=== PATIENT | female | born 1970 | race Caucasian/White ===

== ENCOUNTER 2019-06-16 21:49 | Emergency (ER) | payer SELFPAY ==
[2019-06-16 22:00] VITALS: BP 122/85; PULSE 88; TEMP 97.7; BMI 24.5
--- NOTE | 2019-06-16 22:05 | PDOC ---
History of Present Illness - General Chief Complaint: Pain, Acute Stated Complaint: HEADACHE,DIZZY Time Seen by Provider: 06/16/19 21:59 - History of Present Illness Initial Comments: This 49-year-old woman with no significant past medical history presents with a 1 day history of frontal headache. Patient states that she had a mild headache upon awakening today and reported to work. During the morning, she had more significant pain (dull, steady headache on both sides of her forehead). Patient states that she rarely gets headaches although her mother has a history of migraines. No fevers/chills/nasal congestion/stiff neck or rhinorrhea reported. Patient states that she had "the flu" a few weeks ago during which she had a fever, body aches and weakness. Pain continued through out the day and she took 800 mg of ibuprofen when she returned home late in the afternoon. She noted lightheadedness, mild nausea and increased pain when looking at light late this afternoon and early this evening. No daily medications No known allergies Non-smoker; denies daily alcohol or recreational drug use Past History - Past Medical History Allergies/Adverse Reactions: Allergies Allergy/AdvReac Type Severity Reaction Status Date / Time No Known Allergies Allergy Verified 06/16/19 21:53 Home Medications: Ambulatory Orders Naproxen [Naprosyn -] 500 mg PO BID PRN #14 tablet 06/16/19 COPD: No Other medical history: DENIES - Psycho Social/Smoking Cessation Hx Smoking History: Never smoked Have you smoked in the past 12 months: No Information on smoking cessation initiated: No Hx Alcohol Use: No Drug/Substance Use Hx: No Review of Systems - Review of Systems Able to Perform ROS?: Yes Comments:: 12 point review of systems is negative except for what is noted in the history of present illness *Physical Exam - Vital Signs Last Vital Signs Temp Pulse Resp BP Pulse Ox 97.7 F 88 16 122/85 98 06/16/19 21:56 06/16/19 21:56 06/16/19 21:56 06/16/19 21:56 06/16/19 21:56 - Physical Exam GENERAL: Adult female, alert and oriented x3, mild distress secondary to frontal headache HEAD: Normal with no signs of trauma. EYES: PERRLA, EOMI, sclera anicteric, conjunctiva clear. ENT: Ears normal, nares patent, oropharynx clear without exudates. Moist mucous membranes. NECK: Normal range of motion, supple without lymphadenopathy, JVD, or masses. LUNGS: Breath sounds equal, clear to auscultation bilaterally. No wheezes, and no crackles. HEART:Regular rate and rhythm, normal S1 and S2 without murmur, rub or gallop. ABDOMEN:.normal bowel sounds No guarding,tenderness or rebound.No masses No distention. EXTREMITIES: Normal range of motion, no edema. No clubbing or cyanosis. No erythema, or tenderness. NEUROLOGICAL: Cranial nerves II through XII grossly intact. Normal speech. No focal neurological deficits. MUSCULOSKELETAL: Back non-tender to palpation, no CVA tenderness SKIN: Warm, Dry, normal turgor, no rashes or lesions noted. Medical Decision Making - Medical Decision Making As noted above, this 49-year-old woman with no reported previous history of migraine headache presents with 1 day history of persistent frontal headache accompanied by photophobia and nausea. Patient has family history (mother) of migraine. Patient took 1 dose of ibuprofen (800 mg) prior to presentation without significant relief. Triggering mechanism of headache is unclear; although she had apparent viral syndrome a few weeks ago, she has had no fever/stiff neck/rash or other acute symptoms in the last few days. Exam as noted is essentially normal without neurologic deficit. Proposed treatment of her headache discussed with the patient. The patient refused any intravenous medication stating that she was "afraid" of any parenteral medications. She would only accept a "strong" oral medication. Naproxen 500 mg given orally to patient Patient has some relief after oral naproxen. Patient states that she feels well enough to go home and sleep; she is given work documentation with instructions to return to the emergency room if she has recurrence of her severe headache or develops vomiting. She should follow-up with her general medical doctor within the next few days. Discharge - Discharge Information Problems reviewed: Yes Clinical Impression/Diagnosis: Headache Qualifiers: Headache type: unspecified Headache chronicity pattern: acute headache Intractability: not intractable Qualified Code(s): R51 - Headache Condition: Stable Disposition: HOME - Additional Discharge Information Prescriptions: Naproxen [Naprosyn -] 500 mg PO BID PRN #14 tablet PRN Reason: Headache - Follow up/Referral - Patient Discharge Instructions Patient Printed Discharge Instructions: DI for Headache Additional Instructions: naproxen 550mg twice a day as needed for headache;take with food No work until June 18 return to ER if you have persistent, severe headache or develop vomiting Follow-up with your general doctor within the next 2 to 3 days - Post Discharge Activity Work/Back to School Note: Back to Work
[2019-06-16] MEDS ORDERED: NAPROXEN 500 MG TABLET PO ONE (23:18)
[2019-06-16] MEDS ORDERED: NAPROXEN 500 MG TABLET ONE (23:19)
== END 2019-06-16 23:40 | disposition home or self-care (01) ==
LOC: FER 21:49
DX: R51 Headache (principal)
CPT/HCPCS: 99283-25